=== PATIENT | male | born 1990 | race Caucasian/White ===

== ENCOUNTER 2017-05-15 23:39 | Emergency (ER) | payer SELFPAY ==
[~2017-05-15] VITALS: Ht 180.3 cm; Wt 61.2 kg
[~2017-05-15 23:39] MED LIST: TRAM-48 PO
--- NOTE | 2017-05-16 00:35 | PHYS DOC ---
Past Medical History Past Medical History: No Pertinent History Past Surgical History: No Surgical History Smoking: Cigarettes Alcohol Use: None Drug Use: Marijuana Adult General Chief Complaint Chief Complaint: SHORTNESS OF BREATH HPI HPI Patient is a 27 year old male presents to the emergency via EMS patient states that movement ago he was diagnosed with pneumonia. He states he was provided with a prescription in which he had lost. He states that he was homeless and he did not go back to the facility to obtain a new prescription. Patient states that he has recently moved here from [place]. He states that he is living with his mom. He states that he has had a cough congestion with some dizziness when he is up ambulating. Patient denies any fever, chills he does state however he has been having some sweats. Patient does state he has a history of smoking. Patient states that he has not had anything to eat within the last 2 days. Patient also states that when he gets up and ambulates he sometimes becomes dizzy however he was able to ambulate to the bathroom here in the emergency department without distress, dizziness. Patient states that this comes and goes. Review of Systems Review of Systems Constitutional: Denies fever or chills [] Eyes: Denies change in visual acuity, redness, or eye pain [] HENT: Denies nasal congestion or sore throat [] Respiratory: cough and SOA Cardiovascular: No additional information not addressed in HPI [] GI: Denies abdominal pain, nausea, vomiting, bloody stools or diarrhea [] : Denies dysuria or hematuria [] Musculoskeletal: Denies back pain or joint pain [] Integument: Denies rash or skin lesions [] Neurologic: Denies headache, focal weakness or sensory changes [] Endocrine: Denies polyuria or polydipsia [] All other systems were reviewed and found to be within normal limits, except as documented in this note. Current Medications Current Medications Current Medications Medications (Trade) Dose Ordered Sig/Murali Start Time Stop Time Status Last Admin Dose Admin Albuterol/ Ipratropium (Duoneb) 3 ml 1X ONCE 05/16/17 01:00 05/16/17 01:01 DC 05/16/17 01:41 3 ML Sodium Chloride 1,000 ml @ 1,000 mls/hr 1X ONCE 05/16/17 01:00 05/16/17 01:59 05/16/17 01:00 1,000 MLS/HR Allergies Allergies Allergies Coded Allergies Type Severity Reaction Last Updated Verified No Known Drug Allergies 04/16/16 No Physical Exam Physical Exam Constitutional: Well developed, well nourished, no acute distress, non-toxic appearance. Patient does appear to have sunken areas around the eyes as well as around the cheek bones. HENT: Normocephalic, atraumatic, bilateral external ears normal, oropharynx moist, no oral exudates, nose normal. Bilateral tympanic membranes appear to be normal. Throat with no redness no erythema is noted. Eyes: PERRLA, EOMI, conjunctiva normal, no discharge. [] Neck: Normal range of motion, no tenderness, supple, no stridor. [] Cardiovascular:Heart rate regular rhythm, no murmur [] Lungs & Thorax: Bilateral breath sounds wheezes noted throughout the right lower posterior right lobe. Skin: Warm, dry, no erythema, no rash. [] Extremities: No tenderness, no cyanosis, no clubbing, ROM intact, no edema. [] Neurologic: Alert and oriented X 3, normal motor function, normal sensory function, no focal deficits noted. [] Psychologic: Affect normal, judgement normal, mood normal. [] Current Patient Data Vital Signs Vital Signs Date Time Temp Pulse Resp B/P (MAP) Pulse Ox O2 Delivery O2 Flow Rate FiO2 05/16/17 01:42 100 Room Air 05/15/17 23:39 98.3 79 20 120/69 (86) 98.3 Lab Values Laboratory Tests Test 05/16/17 00:33 White Blood Count 8.0 x10^3/uL (4.0-11.0) Red Blood Count 5.11 x10^6/uL (4.30-5.70) Hemoglobin 16.5 g/dL (13.0-17.5) Hematocrit 48.0 % (39.0-53.0) Mean Corpuscular Volume 94 fL (79-100) Mean Corpuscular Hemoglobin 32 pg (25-35) Mean Corpuscular Hemoglobin Concent 34 g/dL (31-37) Red Cell Distribution Width 13.6 % (11.5-14.5) Platelet Count 192 x10^3/uL (140-400) Neutrophils (%) (Auto) 70 % (31-73) Lymphocytes (%) (Auto) 16 % (24-48) L Monocytes (%) (Auto) 14 % (0-9) H Eosinophils (%) (Auto) 1 % (0-3) Basophils (%) (Auto) 0 % (0-3) Neutrophils # (Auto) 5.6 x10^3uL (1.8-7.7) Lymphocytes # (Auto) 1.2 x10^3/uL (1.0-4.8) Monocytes # (Auto) 1.1 x10^3/uL (0.0-1.1) Eosinophils # (Auto) 0.1 x10^3/uL (0.0-0.7) Basophils # (Auto) 0.0 x10^3/uL (0.0-0.2) Sodium Level 142 mmol/L (136-145) Potassium Level 3.4 mmol/L (3.5-5.1) L Chloride Level 102 mmol/L (98-107) Carbon Dioxide Level 31 mmol/L (21-32) Anion Gap 9 (6-14) Blood Urea Nitrogen 16 mg/dL (8-26) Creatinine 1.2 mg/dL (0.7-1.3) Estimated GFR (Cockcroft-Gault) 73.8 BUN/Creatinine Ratio 13 (6-20) Glucose Level 74 mg/dL (70-99) Calcium Level 10.0 mg/dL (8.5-10.1) Total Bilirubin 0.9 mg/dL (0.2-1.0) Aspartate Amino Transferase (AST) 14 U/L (15-37) L Alanine Aminotransferase (ALT) 42 U/L (16-63) Alkaline Phosphatase 93 U/L (46-116) Total Protein 8.3 g/dL (6.4-8.2) H Albumin 3.8 g/dL (3.4-5.0) Albumin/Globulin Ratio 0.8 (1.0-1.7) L Laboratory Tests 05/16/17 00:33 Laboratory Tests 05/16/17 00:33 EKG EKG [] Radiology/Procedures Radiology/Procedures [] Course & Med Decision Making Course & Med Decision Making Pertinent Labs and Imaging studies reviewed. (See chart for details) Chest x-ray was negative per Dr. Willingham. Patient will be provided with a respiratory treatment here in the emergency department. After tx breath sound continue to have wheezing noted in the posterior lung foy bilaterally. He'll be provided with IV fluids to help hydrate him as he states that he is really not eaten or drank anything in the last 2 days. Patient was also provided with meal tray. Patient will be discharged home in stable condition and he'll be provided with prednisone. Patient has been provided with his chest x-ray results. He has been provided with his discharge instructions and treatment regimen. Recommended that he stop smoking. Patient agrees with discharge instructions, regimens and follow-up recommendations. He'll be provided with a doctor's list for follow-up. All questions and concerns have been answered at the patient's bedside. [] I've spoken with the patient and/or caregivers. I've explained the patient's condition, diagnosis and treatment plan based on information available to me at this time. I've answered the patient's and/or caregivers questions and addressed any concerns. The patient and/or caregivers have a good understanding the patient's diagnosis, condition and treatment plan as can be expected at this point. Vital signs have been stabilized. The patient's condition is stable for discharge from the emergency department. The patient will pursue further outpatient evaluation with her primary care provider or other designated consulting physician as outlined in the discharge instructions. Patient and/or caregivers are agreeable to this plan of care and follow-up instructions have been explained in detail. The patient and/or caregivers have received these instructions in written format and expressed understanding of these discharge instructions. The patient and her caregivers are aware that if any significant change in condition or worsening of symptoms should prompt him to immediately return to this of the closest emergency department. If an emergent department is not readily available I would encourage him to call [phone] Dragon Disclaimer Dragon Disclaimer This electronic medical record was generated, in whole or in part, using a voice recognition dictation system. Departure Departure Impression: Primary Impression: Dyspnea Disposition: 01 HOME, SELF-CARE Condition: STABLE Referrals: NO PCP (PCP) Patient Instructions: Shortness of Breath, [id number] Additional Instructions: Activity as tolerated Medication as prescribed Tylenol or Ibuprofen for fever, chills or generalized body aches and discomfort Drink plenty of fluids Stop smoking Followup with primary care provider. You have been provided with a doctors to assist with followup Return to emergency department as needed for signs and symptoms that become worse. Scripts Inhaler, Assist Devices (Compact Space Chamber) 1 Each Spacer EACH , #1 Prov: ARIK HAGER APRN 05/16/17 Albuterol Sulfate (PROAIR HFA INHALER) 8.5 Gm Hfa.aer.ad 1 PUFF INH PRN Q6HRS Y for SHORTNESS OF BREATH, #1 INHALER 0 Refills Prov: ARIK HAGER APRN 05/16/17 Prednisone (PREDNISONE) 20 Mg Tablet 40 MG PO DAILY for 7 Days, #14 TAB Prov: ARIK HAGER APRN 05/16/17 Problem Qualifiers Primary Impression: Dyspnea Dyspnea type: unspecified Qualified Codes: R06.00 - Dyspnea, unspecified ARIK HAGER APRN May 16, 2017 00:35
[2017-05-16 00:45] LABS: BASO % 0 % (0-3); EOS % 1 % (0-3); HEMOGLOBIN 16.5 g/dL (13.0-17.5); LYMPH # 1.2 x10^3/uL (1.0-4.8); LYMPH % 16 % (24-48); MEAN CORPUSCULAR HEMOGLOBIN 32 pg (25-35); MEAN CORPUSCULAR HGB CONC 34 g/dL (31-37); MEAN CORPUSCULAR VOLUME 94 fL (79-100); MONO % 14 % (0-9); NEUT % 70 % (31-73); PLATELET COUNT 192 x10^3/uL (140-400); RED BLOOD COUNT 5.11 x10^6/uL (4.30-5.70); RED CELL DISTRIBUTION WIDTH 13.6 % (11.5-14.5)
[2017-05-16 00:56] LABS: CREATININE 1.2 mg/dL (0.7-1.3); GFR 73.8; POTASSIUM 3.4 mmol/L (3.5-5.1)
[2017-05-16] MEDS ORDERED: IV NORMAL SALINE 1000ML BAG 1,000 ML IV ONE (01:00)
[2017-05-16] MEDS ORDERED: IPRATRPIUM/ALBUTEROL 0.5/2.5MG 3 ML NEBU. NEB ONE (01:00)
[2017-05-16 01:02] LABS: ALBUMIN 3.8 g/dL (3.4-5.0); ALBUMIN/GLOBULIN RATIO 0.8 (1.0-1.7); TOTAL BILIRUBIN 0.9 mg/dL (0.2-1.0); TOTAL PROTEIN 8.3 g/dL (6.4-8.2)
[2017-05-16] MEDS ORDERED: INHA1SPA94 MC (01:09)
[2017-05-16] MEDS ORDERED: PROAIR HFA8.5 GM INH (01:09)
[2017-05-16] MEDS ORDERED: PRED20TA PO (01:09)
[2017-05-16 01:58] VITALS: BP 100/58
--- NOTE | 2017-05-16 07:51 | RAD ---
EXAM: Chest, 2 views. HISTORY: Cough. COMPARISON: None. FINDINGS: Frontal and lateral views of the chest are obtained. There is no infiltrate, effusion or pneumothorax. The heart is normal in size. There is basilar atelectasis. There is hyperexpansion likely due to inspiratory effort. IMPRESSION: Suspected basilar atelectasis.
== END 2017-05-16 02:01 | disposition home or self-care (01) ==
LOC: ER 23:39
DX: R06.00 Dyspnea, unspecified (principal); R05 Cough; R06.2 Wheezing; R42 Dizziness and giddiness; F17.210 Nicotine dependence, cigarettes, uncomplicated; Z59.0 Homelessness
CPT/HCPCS: 36415; 71020; 80053; 85025; 94640; 96360; 99285; J7030; J7620